=== PATIENT | female | born 1950 | race Caucasian/White ===

== ENCOUNTER → 2020-03-17 | Day surgery (SDC) | payer MEDICARE, MEDICAID ==
[~2020-03-17] MED LIST: CILOSTAZOL 100100 M1 PO; EFFEXOR XR150 MG PO; FISH OIL 1,001000 M3 PO; LIPITOR80 MG PO; LISINOPRIL-HCT1 EACH PO; LORCET 5-325 M1 EACH PO; VITAMIN D325 MC2 PO; ZETIA10 MG PO
--- NOTE | ~2020-03-17 | OP ---
[address] [address] OPERATIVE REPORT Name: JANELENNIE Room: [facility]#: [id number] Admission: 03/17/20 Attend Phys: Logan Rico DO Discharge: Date of : 50 Report #: [id number] THIS REPORT FOR: //name// cc: Noah Fernandez MD,Noah WOOTEN ~ CC: Logan Fernandez DICTATED BY: Camron Borja DO DATE OF SERVICE: 03/17/2020 PREOPERATIVE DIAGNOSIS: Left comminuted intraarticular distal radius fracture. POSTOPERATIVE DIAGNOSIS: Left comminuted intraarticular distal radius fracture. PROCEDURE PERFORMED: Open reduction and internal fixation of intra-articular left distal radius fracture with greater than 3 parts. SURGEON: Logan Rico DO COUNTY COURT JUDGE: Camron Borja DO and Chris Valdez DO ANESTHESIA: General. ESTIMATED BLOOD LOSS: 20 mL. ANTIBIOTICS: 2 grams Ancef IV preoperatively. COMPLICATIONS: None. SPECIMENS: None. DISPOSITION: Stable to PACU. INDICATIONS FOR PROCEDURE: The patient is a pleasant 69-year-old female who presented to the Emergency Department on 03/01/2020 for evaluation of a displaced left distal radius fracture. She underwent closed reduction with splint application at that time. She subsequently followed up in the Orthopedic [facility]. Radiographs demonstrated a comminuted intraarticular distal radius fracture with dorsal displacement. Treatment options were discussed in detail with the patient. Operative intervention was recommended. The risks, benefits, alternatives and complications of open reduction and internal fixation were discussed and the patient wished to proceed. Of note, the patient did have a previous left distal radius fracture several months ago, treated nonoperatively, and did have somewhat of a deformity to this left distal radius prior to this [address] [address] OPERATIVE REPORT Name: LENNIE JANE Room: [facility].#: [id number] Admission: 03/17/20 Attend Phys: Logan Rico DO Discharge: Date of : 50 Report #: [id number] most recent injury. DESCRIPTION OF PROCEDURE: The patient was seen and examined in the preoperative holding area. The correct operative extremity was marked. Written consent was obtained. The patient was then transferred to the operating room and placed supine on the operating table. She was given the benefit of general anesthesia. A well-padded tourniquet was placed in left upper extremity. Left upper extremity was then prepped and draped in the usual sterile fashion. Timeout was performed to verify the correct patient, procedure and operative extremity and all were in agreement. Next, the left upper extremity was exsanguinated with the Esmarch and the tourniquet was inflated to 250 mmHg. This remained inflated for 60 minutes. Procedure then began with a standard volar incision directly over the flexor carpi radialis tendon. Sharp dissection was carried down to the level of the tendon. The tendon sheath was incised and the tendon was then retracted ulnarly. Next, the floor of the tendon sheath was incised and the flexor pollicis longus muscle belly was mobilized. The pronator quadratus was then visualized. This was elevated off of the radial aspect of the distal radius. This then demonstrated the fracture site. There was noted to be comminution as well as a separate radial styloid fragment. This was displaced dorsally. All soft tissue was debrided from the fracture site. A reduction was attempted. The brachioradialis tendon was then partially released off of the radial styloid to aid in reduction. The reduction was then held and a K-wire was placed through the radial styloid into the radial shaft. Fluoroscopic images were obtained, which demonstrated appropriate reduction of the fracture site. Next, a [employer] distal radius plate was then placed and pinned into position with K-wire fixation. Fluoroscopy was used to obtain appropriate plate placement. Next, one cortical screw was placed in the oblong hole of the shaft of the [employer] plate. This was a preliminarily tightened to allow some motion within the plate. Next, the distal screws were then drilled and appropriate sized partially threaded locking pegs were placed. Again, fluoroscopy was used to verify the correct length of the screws as well as correct placement. Next, the shaft screw was then tightened and compressed the plate to the bone. The final 2 shaft screws were drilled and measured and appropriate length cortical screws were then placed. Final radiographs were obtained demonstrating appropriate reduction of the fracture as well as appropriate placement of the volar plate with no signs of complication. The tourniquet was then deflated. There was no significant bleeding. The wound was thoroughly irrigated with normal saline. This was then closed with 3-0 Vicryl in simple interrupted and inverted fashion followed by running 3-0 nylon on the skin. Sterile dressing was then applied. She was placed in a volar splint. She was then awakened from anesthesia and transferred to the PACU in [address] [address] OPERATIVE REPORT Name: LENNIE JANE Room: [facility]#: [id number] Admission: 03/17/20 Attend Phys: Logan Rico DO Discharge: Date of : 50 Report #: [id number] condition. The patient tolerated the procedure well. There were no complications. By: [id number] Rico DO /nt
[2020-03-17 12:25] LABS: HEMATOCRIT 39.2 % (37.0-47.0); HEMOGLOBIN 13.3 gm/dL (12.0-15.0); MCV 94.1 fL (80.0-100.0); MPV 7.8 fl. (7.2-11.1); RBC 4.17 mil/uL (4.20-5.00); RDW-CV 14.6 % (10.5-14.5); WBC 9.6 thou/uL (4.0-11.0)
[2020-03-17 12:31] LABS: CALCIUM 8.7 mg/dL (8.5-10.1); CREATININE 0.8 mg/dL (0.6-1.3); POTASSIUM 3.9 mmol/L (3.5-5.1)
--- NOTE | 2020-03-17 17:45 | EKG ---
[place] [address] ELECTROCARDIOGRAM REPORT Name: LENNIE JANE Room: [facility]#: [id number] Admission: 03/17/20 Attend Phys: Logan Rico DO Discharge: Date of : 50 Date of Service: 03/17/20 1257 Report #: [id number] THIS REPORT FOR: //name// [facility] [place] Test Date: 2020-03-17 Test Time: 12:57:32 Pat Name: LENNIE JANE Department: Room: Gender: Bilingual Teacher: : 1950 Requested By: Logan Rico Order Number: [id number] Emmett MD: Johnathan Cyr Measurements Intervals [place] Rate: 74 P: 10 MI: 172 QRS: -31 QRSD: 103 T: 56 QT: 425 QTc: 472 Interpretive Statements Sinus rhythm Low voltage, precordial leads Left ventricular hypertrophy, by voltage No previous ECG available for comparison Electronically Signed On 03-17-2020 17:45:32 CDT by Johnathan Cyr [email or web address] <ELECTRONICALLY SIGNED> By: Johnathan Cyr MD, [facility] 03/17/20 1745 1257 [id number] Johnathan Cyr MD, FAC /EPI
== END | disposition home or self-care (01) ==
LOC: M.SUR 09:08
PROVIDERS: ATTEND Orthopaedic Surgery
DX: S52.572A Other intraarticular fracture of lower end of left radius, initial encounter for closed fracture (principal); Z79.899 Other long term (current) drug therapy; Z20.828 Contact with and (suspected) exposure to other viral communicable diseases; Z98.890 Other specified postprocedural states; X58.XXXA Exposure to other specified factors, initial encounter; Y93.89 Activity, other specified; Y92.89 Other specified places as the place of occurrence of the external cause; Y99.8 Other external cause status